=== PATIENT | female | born 1995 | race African-American/Black ===

== ENCOUNTER 2025-06-02 18:19 | Emergency (ER) | payer SELFPAY ==
--- NOTE | ~2025-06-02 | US_ITS ---
EXAMINATION: US OB <=14 wk fetus w TV DATE: 06/02/2025 20:03 INDICATION: Early with bleeding TECHNIQUE: Real-time pelvic ultrasound utilizing both a transvaginal and transabdominal probe was performed. The interpreting radiologist was not present for the study. COMPARISON: None. FINDINGS: The uterus measures 7.3 x 4.2 x 3.5 cm. No evident intrauterine gestational sac. There is trace amount of anechoic fluid within the endocervical canal measuring up to 1.5 mm in thickness. The right ovary measures 3.6 x 3.0 x 2.7 cm. The left ovary measures 2.6 x 2.5 x 2.0 cm. Vascular flow identified in both ovaries on color Doppler. No other abnormal adnexal masses identified. There is no free fluid in the pelvis. IMPRESSION: 1. No evident intrauterine gestational sac for which differential would include early, failed or ectopic . Reviewed, dictated and finalized at location A.
[2025-06-02 18:25] VITALS: BP 121/86; PULSE 67; RESP 16; TEMP 36.7; O2SAT 99
--- NOTE | 2025-06-02 18:40 | ED_ITS ---
HPI - General Adult General Chief complaint: GINNER <Melanie Garza December, [employer] - Last Filed: 06/02/25 18:55> Stated complaint: 6 weeks, bleeding started last night <Melanie Garza December, [employer] - Last Filed: 06/02/25 18:55> Time Seen by Provider: 06/02/25 18:40 <Melanie Garza December, [employer] - Last Filed: 06/02/25 18:55> Focused HPI: Obey Dan is a 29 y/o female , LMP was Apr 23 and she took a positive test last week and started to have light bleeding last night and now heavier. Denies lower back or lower abdominal pain. She does not take any daily medications. GENERAL: Well-appearing, well-nourished, and in no acute distress. HEAD: Normocephalic, atraumatic. CHEST: Clear to auscultation. ?No respiratory distress. HEART: Regular rate and rhythm.? NEURO: ?Alert and oriented x3. Patient screened in triage and initial orders placed.? ?Additional care and disposition to be based upon?diagnostic testing and treatment. <Melanie Garza December, [employer] - Last Filed: 06/02/25 18:55> Source: patient and other (patient presents with her coworkers but does have them step out during discussions of her health at her request) <Flora Tinoco MD - Last Filed: 06/04/25 08:51> Mode of arrival: ambulatory <Flora Tinoco MD - Last Filed: 06/04/25 08:51> Limitations: no limitations <Flora Tinoco MD - Last Filed: 06/04/25 08:51> History of Present Illness HPI narrative: Patient is a 11 female who states her last menstrual period was 04/23/2025, she reports being approximately 6 weeks . She took a test at home x3 on 05/25 which were all positive. Had not yet established OB Gyne but has an appointment to do so 06/18 with [facility] Tabitha Jorgensen. Had not had any serum beta-hCG testing or confirmation of intrauterine . She started having vaginal bleeding last night. She states that was initially late and then became dark red. She denies any abdominal pain or cramping she has only gone through 2 pads in total. <Flora Tinoco MD - Last Filed: 06/04/25 08:51> Related Data Allergies/adverse reactions: Allergies Allergy/AdvReac Type Severity Reaction Status Date / Time strawberry Allergy Intermediate Hives Verified 06/02/25 21:53 amoxicillin Allergy Rash Verified 06/02/25 21:53 Penicillins Allergy Rash Verified 06/02/25 21:53 <Melanie Dent [employer] - Last Filed: 06/02/25 18:55> PMFSH Social History Social History: Social History Occupation/Education: occupation Additional occupation/education comments: employed <Melanie Dent, [employer] - Last Filed: 06/02/25 18:55> Exam 2 Narrative: GENERAL: Well-appearing, well-nourished, and in no acute distress. HEAD: Normocephalic, atraumatic. EYES: Non injected, non icteric ENT: Nares clear, no rhinorrhea or epistaxis. Gross auditory acuity intact. NECK: Supple. No meningismus. CHEST: Speaking in full sentences. No respiratory distress. HEART: Regular rate and rhythm. . ABDOMEN: Soft, nondistended. No rigidity or guarding. Not peritoneal EXTREMITIES: Normal range of motion. No lower extremity edema. SKIN: Warm, dry, no rash. NEURO: No focal deficits. Alert and oriented. Answering questions. Following commands. Normal speech without aphasia or dysarthria. PSYCH: Normal mood and affect. <Flora Tinoco MD - Last Filed: 06/04/25 08:51> Course Vital Signs Vital signs: Vital Signs Temperature 98.0 F 06/02/25 18:25 Pulse Rate 67 06/02/25 18:25 Respiratory Rate 16 06/02/25 18:25 Blood Pressure 121/86 06/02/25 18:25 Pulse Oximetry 99 06/02/25 18:25 Temperature 98 F 06/02/25 23:15 Pulse Rate 72 06/02/25 23:15 Respiratory Rate 16 06/02/25 23:15 Blood Pressure 120/82 06/02/25 23:15 Pulse Oximetry 98 06/02/25 23:15 <Melanie Dent [employer] - Last Filed: 06/02/25 18:55> Vital Signs Temperature 98.0 F 06/02/25 18:25 Pulse Rate 67 06/02/25 18:25 Respiratory Rate 16 06/02/25 18:25 Blood Pressure 121/86 06/02/25 18:25 Pulse Oximetry 99 06/02/25 18:25 Temperature 98 F 06/02/25 23:15 Pulse Rate 72 06/02/25 23:15 Respiratory Rate 16 06/02/25 23:15 Blood Pressure 120/82 06/02/25 23:15 Pulse Oximetry 98 06/02/25 23:15 <Flora Tinoco MD - Last Filed: 06/04/25 08:51> Medical Decision Making MDM Narrative Medical decision making narrative: This is a 29-year-old 010 female at estimated 5 weeks 5 days gestational age by stated menstrual period 04/23/2025 presents vaginal bleeding started last night. Abdominal pain or cramping. She took 3 positive on 05/25/2025 but has not yet established with OB Gyne this although she has an upcoming appointment to do so. Has had no serum beta-hCG testing more ultrasound imaging for confirmation an intrauterine or extrauterine . In the emergency department they are afebrile with vital signs within normal limits. However Urine test is negative. Normocytic anemia with no prior for comparison. Very mild hyponatremia with no prior for comparison. Hematuria on UA but otherwise without signs of infection. Ultrasound as below. Beta hcg is <2.39, negative. I discussed the findings with the patient who becomes tearful but does verified understanding. Reassurance provided. She came with 2 coworkers and does request that they come to the room at this time. <Flora Tinoco MD - Last Filed: 06/04/25 08:51> Differential Diagnosis Differential Diagnosis: Considered bleeding during early 1st trimester , ectopic spectrum miscarriage. <Flora Tinoco MD - Last Filed: 06/04/25 08:51> Vital Signs Vital Signs: Vital Signs Temperature 98.0 F 06/02/25 18:25 Pulse Rate 67 06/02/25 18:25 Respiratory Rate 16 06/02/25 18:25 Blood Pressure 121/86 06/02/25 18:25 Pulse Oximetry 99 06/02/25 18:25 Temperature 98 F 06/02/25 23:15 Pulse Rate 72 06/02/25 23:15 Respiratory Rate 16 06/02/25 23:15 Blood Pressure 120/82 06/02/25 23:15 Pulse Oximetry 98 06/02/25 23:15 <Melanie Dent, [employer] - Last Filed: 06/02/25 18:55> Vital Signs Temperature 98.0 F 06/02/25 18:25 Pulse Rate 67 06/02/25 18:25 Respiratory Rate 16 06/02/25 18:25 Blood Pressure 121/86 06/02/25 18:25 Pulse Oximetry 99 06/02/25 18:25 Temperature 98 F 06/02/25 23:15 Pulse Rate 72 06/02/25 23:15 Respiratory Rate 16 06/02/25 23:15 Blood Pressure 120/82 06/02/25 23:15 Pulse Oximetry 98 06/02/25 23:15 <Flora Tinoco MD - Last Filed: 06/04/25 08:51> Lab Data Lab results reviewed: Yes I reviewed the patient's lab results. <Flora Tinoco MD - Last Filed: 06/04/25 08:51> Result diagrams: 06/02/25 21:54 06/02/25 21:54 <Melanie Dent APRN - Last Filed: 06/02/25 18:55> Labs: Lab Results 06/02/25 06/02/25 Range/Units 21:51 21:54 WBC 8.7 (4.5-10.0) K/mm3 RBC 3.82 L (4.2-5.4) M/mm3 Hgb 10.9 L (12.0-15.0) g/dL Hct 33.9 L (37.0-47.0) % MCV 88.7 (80-100) fl MCH 28.5 (26-34) pg MCHC 32.2 (32-36) g/dl RDW 13.4 (11.5-14.5) % Plt Count 290 (150-375) k/mm3 MPV 11.1 H (7.4-10.4) fl Immature Gran % (Auto) 0.3 (0-0.5) % Neut % (Auto) 55.3 (45.5-73.1) % Lymph % (Auto) 35.2 (18.3-44.2) % [place] % (Auto) 6.6 (2.6-8.5) % Eos % (Auto) 2.1 (0-4.4) % Baso % (Auto) 0.5 (0.2-1.2) % Lymph # (Auto) 3.06 (0.9-3.2) K/mm3 [place] # (Auto) 0.6 (0.1-0.6) K/mm3 Eos # (Auto) 0.2 (0-0.3) K/mm3 Baso # (Auto) 0.0 (0.0-0.1) K/mm3 Abs Immat Gran (auto) 0.03 (0.00-0.031) K/mm3 Absolute Neuts (auto) 4.8 (1.3-6.7) K/mm3 Absolute Nucleated RBC 0.000 (0.0-0.012) K/mm3 Nucleated RBC % 0.0 (0.0-0.2) % Sodium 135 L (137-145) mmol/L Potassium 4.0 (3.4-5.0) mmol/L Chloride 104 (98-107) mmol/L Carbon Dioxide 24 (22-30) mmol/L Anion Gap 7 (4-12) mmol/L BUN 14 (7-17) mg/dL Creatinine 0.70 (0.7-1.0) mg/dL Estim Creat Clear Calc 114 ml/min Estimated GFR > 60 (59 - ) Glucose 93 (65-110) mg/dL Calcium 9.1 (8.4-10.2) mg/dL Total Bilirubin 0.4 (0.2-1.3) mg/dL AST 31 (14-36) U/L ALT 15 (6-35) U/L Alkaline Phosphatase 82 (38-126) U/L Total Protein 8.4 H (6.3-8.2) g/dL Albumin 4.3 (3.5-5.1) g/dL Beta HCG, Quant < 2.39 mIU/ML Urine Color Yellow (Yellow) Urine Appearance Clear (Clear) Urine pH 6.5 (5.0-9.0) Ur Specific [place] 1.013 (1.001-1.035) Urine Protein Negative (Negative) mg/dL Urine Glucose (UA) Negative (Negative) mg/dL Urine Ketones Negative (Negative) mg/dL Ur Blood (Man) 3+ H (Negative) Urine Nitrate Negative (Negative) Urine Bilirubin Negative (Negative) Urine Urobilinogen 1.0 (<2.0) mg/dL Leukocyte Esterase Rfl Negative (Negative) JARRET/UL Urine RBC 11-20 H (0-2) /hpf Urine WBC 0-5 (0-3) /hpf Ur Squamous Epith Cells None seen (Few) /hpf Urine Bacteria None seen /hpf Urine Casts 0-2 POC Urine HCG, Qual Negative (Negative) <Melanie Dent, [employer] - Last Filed: 06/02/25 18:55> Lab Results 06/02/25 06/02/25 Range/Units 21:51 21:54 WBC 8.7 (4.5-10.0) K/mm3 RBC 3.82 L (4.2-5.4) M/mm3 Hgb 10.9 L (12.0-15.0) g/dL Hct 33.9 L (37.0-47.0) % MCV 88.7 (80-100) fl MCH 28.5 (26-34) pg MCHC 32.2 (32-36) g/dl RDW 13.4 (11.5-14.5) % Plt Count 290 (150-375) k/mm3 MPV 11.1 H (7.4-10.4) fl Immature Gran % (Auto) 0.3 (0-0.5) % Neut % (Auto) 55.3 (45.5-73.1) % Lymph % (Auto) 35.2 (18.3-44.2) % [place] % (Auto) 6.6 (2.6-8.5) % Eos % (Auto) 2.1 (0-4.4) % Baso % (Auto) 0.5 (0.2-1.2) % Lymph # (Auto) 3.06 (0.9-3.2) K/mm3 [place] # (Auto) 0.6 (0.1-0.6) K/mm3 Eos # (Auto) 0.2 (0-0.3) K/mm3 Baso # (Auto) 0.0 (0.0-0.1) K/mm3 Abs Immat Gran (auto) 0.03 (0.00-0.031) K/mm3 Absolute Neuts (auto) 4.8 (1.3-6.7) K/mm3 Absolute Nucleated RBC 0.000 (0.0-0.012) K/mm3 Nucleated RBC % 0.0 (0.0-0.2) % Sodium 135 L (137-145) mmol/L Potassium 4.0 (3.4-5.0) mmol/L Chloride 104 (98-107) mmol/L Carbon Dioxide 24 (22-30) mmol/L Anion Gap 7 (4-12) mmol/L BUN 14 (7-17) mg/dL Creatinine 0.70 (0.7-1.0) mg/dL Estim Creat Clear Calc 114 ml/min Estimated GFR > 60 (59 - ) Glucose 93 (65-110) mg/dL Calcium 9.1 (8.4-10.2) mg/dL Total Bilirubin 0.4 (0.2-1.3) mg/dL AST 31 (14-36) U/L ALT 15 (6-35) U/L Alkaline Phosphatase 82 (38-126) U/L Total Protein 8.4 H (6.3-8.2) g/dL Albumin 4.3 (3.5-5.1) g/dL Beta HCG, Quant < 2.39 mIU/ML Urine Color Yellow (Yellow) Urine Appearance Clear (Clear) Urine pH 6.5 (5.0-9.0) Ur Specific [place] 1.013 (1.001-1.035) Urine Protein Negative (Negative) mg/dL Urine Glucose (UA) Negative (Negative) mg/dL Urine Ketones Negative (Negative) mg/dL Ur Blood (Man) 3+ H (Negative) Urine Nitrate Negative (Negative) Urine Bilirubin Negative (Negative) Urine Urobilinogen 1.0 (<2.0) mg/dL Leukocyte Esterase Rfl Negative (Negative) JARRET/UL Urine RBC 11-20 H (0-2) /hpf Urine WBC 0-5 (0-3) /hpf Ur Squamous Epith Cells None seen (Few) /hpf Urine Bacteria None seen /hpf Urine Casts 0-2 POC Urine HCG, Qual Negative (Negative) <Flora Tinoco MD - Last Filed: 06/04/25 08:51> Imaging Data Radiologist's impression: Impressions Obstetrics Ultrasound 06/02/25 20:17 IMPRESSION: 1. No evident intrauterine gestational sac for which differential would include early, failed or ectopic . <Flora Tinoco MD - Last Filed: 06/04/25 08:51> Discharge Plan Discharge Clinical Impression: Normocytic anemia, examination or test, negative result, Vaginal bleeding <Melanie Garza December [employer] - Last Filed: 06/02/25 18:55> Patient Disposition: Home <Melanie Garza December [employer] - Last Filed: 06/02/25 18:55> Condition: Stable <Melanie Garza December [employer] - Last Filed: 06/02/25 18:55> Instructions: Antibiotic Form, Miscarriage (ED), Anemia (ED) <Melanie Garza December, [employer] - Last Filed: 06/02/25 18:55> Additional Instructions: As we discussed, both your urine and blood tests were negative and there was no evidence on your ultrasound. As we discussed, this likely represents that you miscarried if you had positive tests at home >1 week ago. Notify your ObGyn of the update. alternatively, if you need the name of a local Ob Gyne, the name of a doctor is listed below. Return to the emergency department any new or worsening symptoms. For example, intractable pain not responding to acetaminophen, fever greater than 100.4? F, or vaginal bleeding in which you are saturating 2 maxi pads an hour for 2-3 hours. == We are very sorry about your miscarriage. You did everything you could, and it was not your fault. It is okay to grieve, in fact it is to be expected. We know that nothing we can do or say can take away your pain, but please know that we are thinking of you and your family. There is a unique pain that comes from preparing a place in your heart for a child that never comes. - Sushma Dupree We will keep you, your baby, and your family in our prayers. <Melanie Dent [employer] - Last Filed: 06/02/25 18:55> Patient Language: Kazakh <Melanie Garza December [employer] - Last Filed: 06/02/25 18:55> Follow-up/Referrals: Mikel Wen MD [Physician, [employer]] UNKNOWN,DOCTOR [Primary Care Provider] <Melanie Dent APRN - Last Filed: 06/02/25 18:55> Stand Alone Forms: Work/School Release IP <Melanie Dent APRN - Last Filed: 06/02/25 18:55> Time of Disposition: 22:44 <Melanie Dent APRN - Last Filed: 06/02/25 18:55> 22:44 <Flora Tinoco MD - Last Filed: 06/04/25 08:51>
[2025-06-02 21:53] VITALS: BP 133/95; PULSE 63; RESP 16; O2SAT 100
[2025-06-02 21:54] LABS: BEDSIDEPREGUCG Negative (Negative)
[2025-06-02 22:00] LABS: Hematocrit 33.9 % (37.0-47.0); Hemoglobin 10.9 g/dL (12.0-15.0); Immature Granulocyte Percent A 0.3 % (0-0.5); Lymphocytes Absolute Auto 3.06 K/mm3 (0.9-3.2); Mean Corpuscular HGB Conc 32.2 g/dl (32-36); Mean Corpuscular Hemoglobin 28.5 pg (26-34); Mean Corpuscular Volume 88.7 fl (80-100); Nucleated Red Blood Cells Absolute Auto 0.000 K/mm3 (0.0-0.012); Nucleated Red Blood Cells Perc 0.0 % (0.0-0.2); Platelet Count Result 290 k/mm3 (150-375); Red Blood Count 3.82 M/mm3 (4.2-5.4); White Blood Count 8.7 K/mm3 (4.5-10.0)
[2025-06-02 22:06] LABS: Add Urine Microscopic? YES; Appearance Urine Clear (Clear); Glucose Urine UA Negative (Negative); Leukocyte Esterase Ur Negative LEU/UL (Negative); Nitrate Urine Negative (Negative); Non Pathogenic Casts 0-2; Specific Grav Ur 1.013 (1.001-1.035)
[2025-06-02 22:18] LABS: Alanine Aminotransferase 15 U/L (6-35); Albumin Level 4.3 g/dL (3.5-5.1); Alkaline Phosphatase 82 U/L (38-126); Anion Gap 7 mmol/L (4-12); Aspartate Amino Transferase 31 U/L (14-36); Bilirubin,Total 0.4 mg/dL (0.2-1.3); Blood Urea Nitrogen 14 mg/dL (7-17); Calcium 9.1 mg/dL (8.4-10.2); Carbon Dioxide 24 mmol/L (22-30); Chloride 104 mmol/L (98-107); Estimated CRCL calculation 114 ml/min; Estimated Glomerular Filt Rate > 60; Glucose 93 mg/dL (65-110); Potassium 4.0 mmol/L (3.4-5.0); Sodium 135 mmol/L (137-145); Total Protein 8.4 g/dL (6.3-8.2)
[2025-06-02 22:29] LABS: Beta HCG Quantitative < 2.39 mIU/ML
[2025-06-02 23:15] VITALS: BP 120/82; PULSE 72; RESP 16; TEMP 36.6; O2SAT 98
== END 2025-06-02 23:28 | disposition home or self-care (01) ==
PROVIDERS: Nurse Practitioner Family; Emergency Provider Student in an Organized Health Care Education/Training Program
DX: D64.9 Anemia, unspecified (principal); N93.9 Abnormal uterine and vaginal bleeding, unspecified
CPT/HCPCS: 36415; 76801; 76817; 80053; 81001; 81025; 84702; 85025; 99284